=== PATIENT | female | born 1990 | race Caucasian/White ===

== ENCOUNTER 2017-03-02 05:46 | Emergency (ER) | payer BC, MEDICAID ==
--- NOTE | 2017-03-02 05:56 | EDPHY ---
H & P Stated Complaint: sore throat, painful swallowing, Source: Patient - Personal History LMP (Females 10-55): 1-7 Days Ago Current Tetanus/Diphtheria Vaccine: Unsure Current Tetanus Diphtheria and Acellular Pertussis (TDAP): Unsure Tetanus Vaccine Date: <10 years - Medical/Surgical History Hx Asthma: No Hx Chronic Respiratory Disease: No Hx Diabetes: No Hx Cardiac Disease: No Hx Renal Disease: No Hx Cirrhosis: No Hx Alcoholism: No Hx HIV/AIDS: No Hx Splenectomy or Spleen Trauma: No Other PMH: sinus infection 06/2015 - Social History Smoking Status: Never smoked HPI/ROS: HPI CHIEF COMPLAINT: Sore throat, painful swelling x2 weeks progressively getting worse HISTORY OF PRESENT ILLNESS: This patient very pleasant 26-year-old female no significant medical history does not take any daily medications she has recently been suffering from sore throat for the past 2 weeks. She was seen at [facility] twice. She states that she has had a negative strep test negative mono negative flu. She has been treated with Bicillin antibiotic shot twice. She states initially on February 20 she was seen for sore throat and given a Bicillin shot she did not have strep test at that time. She was just treated. She states that her symptoms got worse over the weekend she returned on Friday or February 23 had a strep test mono and influenza that time that were negative but had another Bicillin shot. She now presents emergency room if she has had progressively worsening sore throat trouble swallowing. She denies drooling denies change in phonation. Denies trouble breathing. Her last fever was over week ago. Her main complaint this evening is severe sore throat painful when she swallows. 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 Past Medical History: No significant medical history Past Surgical History: No significant surgical history Social History: Denies daily use of drugs alcohol tobacco products Family History: Noncontributory ROS REVIEW OF SYSTEMS: A comprehensive 10 point review of systems is otherwise negative aside from elements mentioned in the history of present illness. Exam Constitutional appears well nontoxic, triage nursing summary reviewed, vital signs reviewed, awake/alert. Eyes normal conjunctivae and sclera, EOMI, PERRLA. HENT neck exam: trachea is midline, there is submandibular lymphadenopathy bilaterally, oropharynx exam posterior pharynx uvula is midline, no significant tonsillar bed swelling is erythematous with some very fine white lesions that look vesicular, soft palate is normal, no signs of swelling underneath the tongue no signs of Fermín's, dentition intact, no stridor, normal inspection, atraumatic, moist mucus membranes, no epistaxis, neck supple/ no meningismus, no raccoon eyes. Respiratory clear to auscultation bilaterally, normal breath sounds, no respiratory distress, no wheezing. Cardiovascular rate normal, regular rhythm, no murmur, no edema, distal pulses normal. Gastrointestinal soft, non-tender, no rebound, no guarding, normal bowel sounds, no distension, no pulsatile mass. Genitourinary no CVA tenderness. Musculoskeletal no midline vertebral tenderness, full range of motion, no calf swelling, no tenderness of extremities, no meningismus, good pulses, neurovascularly intact. Skin pink, warm, & dry, no rash, skin atraumatic. Neurologic awake, alert and oriented x 3, AAOx3, moves all 4 extremities equally, motor intact, sensory intact, CN II-XII intact, normal cerebellar, normal vision, normal speech. Psychiatric normal mood/affect. Heme/Lymph/Immune no lymphadenopathy. Differential Diagnosis: Includes but is not limited to in a particular order viral pharyngitis, strep pharyngitis, mono, deep space neck abscess, retropharyngeal abscess, [employer] Medical Decision Making: given this patient's symptoms have been going on for 2 weeks progressively getting worse despite multiple treatments of antibiotics I will test for monitor again and strep also given the amount of exquisite pain that she has when she swallows I will perform a CT scan with IV contrast soft tissue neck to me shows not a deep space abscess. Check basic blood work. Meanwhile patient be given Toradol anti-inflammatory pain control as well as Decadron for inflammation. Re-evaluation: 0611: This time this patient is maintaining her airway appropriately there is no significant signs of oropharyngeal swelling. She appears well nontoxic. Plan for blood work CT and medications. (Bakari Connelly) Constitutional: Initial Vital Signs Temperature (C) 37.3 C 03/02/17 05:47 Heart Rate 110 H 03/02/17 05:47 Respiratory Rate 18 03/02/17 05:47 Blood Pressure 151/105 H 03/02/17 05:47 O2 Sat (%) 96 03/02/17 05:47 O2 Delivery Mode Room Air Allergies/Adverse Reactions: No Known Allergies Allergy (Unverified 06/22/15 22:25) Home Medications: Medication Instructions Recorded Amoxicillin/Clavulanate Pot 875 mg PO BID #14 tab 03/02/17 [Augmentin 875 MG TAB (*)] Dexamethasone [Decadron 4 MG (*)] 8 mg PO DAILY #3 tab 03/02/17 Medical Decision Making - Diagnostics Imaging: CT neck with IV contrast reviewed by me and discussed with Dr. Phan shows lymphadenopathy but no abscess or airway compromise (Italo Delaney) ED Course/Re-evaluation: Re-evaluation by me at 8:00 a.m.. Patient and I discussed laboratory and imaging study results. We discussed treatment plan including criteria for return importance of follow-up and further evaluation. She expresses understanding and agreement Patient is stable on re-evaluation. She is talking and speaking in full sentences. There is no stridor. She is handling her secretions well. (Italo Delaney) Differential Diagnosis: I considered retropharyngeal abscess, peritonsillar abscess. It appears with significant lymphadenopathy but no abscess and a positive mono that this is mononucleosis (Italo Delaney) - Data Points Laboratory Results: Laboratory Results 03/02/17 06:15 03/02/17 06:15 03/02/17 03/02/17 03/02/17 Unknown 06:15 06:15 WBC RBC Hgb Hct MCV MCH MCHC RDW Plt Count MPV Neut % (Auto) Lymph % (Auto) Rush % (Auto) Eos % (Auto) Baso % (Auto) Nucleat RBC Rel Count Absolute Neuts (auto) Absolute Lymphs (auto) Absolute Monos (auto) Absolute Eos (auto) Absolute Basos (auto) Absolute Nucleated RBC Immature Gran % Seg Neutrophils % Band Neutrophils % Lymphocytes % Monocytes % Eosinophils % Basophils % Immature Gran # Absolute Seg Neuts Absolute Band Neuts Absolute Lymphocytes Absolute Monocytes Absolute Eosinophils Absolute Basophils RBC/WBC/PLT Morphology Atypical Lymphocytes Platelet Estimate Smear Review By Sodium 142 mEq/L mEq/L (134-144) Potassium 4.2 mEq/L mEq/L (3.5-5.2) Chloride 108 mEq/L mEq/L (97-110) Carbon Dioxide 26 mEq/l mEq/l (22-31) Anion Gap 8 mEq/L mEq/L (8-16) BUN 9 mg/dL mg/dL (7-23) Creatinine 0.8 mg/dL mg/dL (0.6-1.0) Estimated GFR > 60 Glucose 93 mg/dL mg/dL (70-100) Calcium 9.3 mg/dL mg/dL (8.5-10.4) Monoscreen POSITIVE H (NEGATIVE) Group A Strep Screen Group A Strep DNA Pending 03/02/17 03/02/17 06:15 06:05 WBC 10.93 10^3/uL H 10^3/uL (3.80-9.50) RBC 4.57 10^6/uL 10^6/uL (4.18-5.33) Hgb 14.1 g/dL g/dL (12.6-16.3) Hct 42.0 % % (38.0-47.0) MCV 91.9 fL fL (81.5-99.8) MCH 30.9 pg pg (27.9-34.1) MCHC 33.6 g/dL g/dL (32.4-36.7) RDW 13.1 % % (11.5-15.2) Plt Count 187 10^3/uL 10^3/uL (150-400) MPV 9.5 fL fL (8.7-11.7) Neut % (Auto) 24.9 % L % (39.3-74.2) Lymph % (Auto) 67.5 % H % (15.0-45.0) Rush % (Auto) 5.9 % % (4.5-13.0) Eos % (Auto) 0.2 % L % (0.6-7.6) Baso % (Auto) 1.0 % % (0.3-1.7) Nucleat RBC Rel Count 0.0 % % (0.0-0.2) Absolute Neuts (auto) 2.72 10^3/uL 10^3/uL (1.70-6.50) Absolute Lymphs (auto) 7.38 10^3/uL H 10^3/uL (1.00-3.00) Absolute Monos (auto) 0.64 10^3/uL 10^3/uL (0.30-0.80) Absolute Eos (auto) 0.02 10^3/uL L 10^3/uL (0.03-0.40) Absolute Basos (auto) 0.11 10^3/uL H 10^3/uL (0.02-0.10) Absolute Nucleated RBC 0.00 10^3/uL 10^3/uL (0-0.01) Immature Gran % 0.5 % % (0.0-1.1) Seg Neutrophils % 22 % % Band Neutrophils % 4 % % Lymphocytes % 67 % % Monocytes % 4 % % Eosinophils % 1 % % Basophils % 2 % % Immature Gran # 0.06 10^3/uL 10^3/uL (0.00-0.10) Absolute Seg Neuts 2.40 10^/uL 10^/uL (1.70-6.50) Absolute Band Neuts 0.44 10^3/uL 10^3/uL (0.00-0.70) Absolute Lymphocytes 7.32 10^3/uL H 10^3/uL (1.00-3.00) Absolute Monocytes 0.44 10^3/uL 10^3/uL (0.30-0.80) Absolute Eosinophils 0.11 10^3/uL 10^3/uL (0.03-0.40) Absolute Basophils 0.22 10^3/uL H 10^3/uL (0.02-0.10) RBC/WBC/PLT Morphology NORMAL (NORMAL) Atypical Lymphocytes 2+ H Platelet Estimate ADEQUATE (ADEQ) Smear Review By Pending Sodium Potassium Chloride Carbon Dioxide Anion Gap BUN Creatinine Estimated GFR Glucose Calcium Monoscreen Group A Strep Screen NEGATIVE (NEGATIVE) Group A Strep DNA Medications Given: Discontinued Medications Dexamethasone (Decadron Injection) 10 mg IVP EDNOW ONE Stop: 03/02/17 06:07 Last Admin: 03/02/17 06:20 Dose: 10 mg Dexamethasone (Decadron) 8 mg PO EDNOW ONE Stop: 03/02/17 07:58 Last Admin: 03/02/17 08:10 Dose: 8 mg Sodium Chloride (Ns) 1,000 mls @ 0 mls/hr IV ONCE ONE PRN Reason: Wide Open Stop: 03/02/17 06:07 Last Admin: 03/02/17 06:20 Dose: 1,000 mls Ketorolac Tromethamine (Toradol) 30 mg IVP ONCE ONE Stop: 03/02/17 06:07 Last Admin: 03/02/17 06:20 Dose: 30 mg Departure - Departure Disposition: Home, Routine, Self-Care Clinical Impression: Mononucleosis Pharyngitis Qualifiers: Pharyngitis/tonsillitis etiology: unspecified etiology Qualified Code(s): J02.9 - Acute pharyngitis, unspecified Condition: Good Instructions: Mononucleosis (ED) Additional Instructions: Drink plenty of fluids stay hydrated. Consider smoothies and milk shakes for nutrition and hydration with sore throat. Diet as tolerated. No activity that may result in abdominal trauma for 2 weeks. Return for worsening symptoms. Referrals: Patient,NotPresent [Unknown] - As per Instructions [facility] [Outside] - 3-4 days, if not improved Prescriptions: Amoxicillin/Clavulanate Pot [Augmentin 875 MG TAB (*)] 875 mg PO BID #14 tab Dexamethasone [Decadron 4 MG (*)] 8 mg PO DAILY #3 tab
[2017-03-02] MEDS ORDERED: NS 1,000 ML IV ONE (06:06)
[2017-03-02] MEDS ORDERED: DEXAMETHASONE 10 MG/ML VIAL IVP ONE (06:06)
[2017-03-02] MEDS ORDERED: KETOROLAC 30 MG/1 ML SDV IVP ONE (06:06)
[2017-03-02 06:36] LABS: % IMMATURE GRANULYOCYTES 0.5 % (0.0-1.1); ABSOLUTE IMMATURE GRANULOCYTES 0.06 10^3/uL (0.00-0.10); ADD DIFF? NO; ADD MORPH? NO; ADD SCAN? YES; FRAGMENT RBC FLAG 0 (0-99); HEMOGLOBIN 14.1 g/dL (12.6-16.3); LEFT SHIFT FLG 0 (0-99); LIPEMIA HEMOLYSIS FLAG 80 (0-99); MEAN CELL HEMOGLOBIN 30.9 pg (27.9-34.1); MEAN CELL HEMOGLOBIN CONCENTR. 33.6 g/dL (32.4-36.7); MEAN CELL VOLUME 91.9 fL (81.5-99.8); MEAN PLATELET VOLUME 9.5 fL (8.7-11.7); PLATELET CLUMPS FLAG 20 (0-99); PLATELET COUNT 187 10^3/uL (150-400); RED BLOOD CELL COUNT 4.57 10^6/uL (4.18-5.33); RED CELL DISTRIBUTION WIDTH 13.1 % (11.5-15.2)
[2017-03-02 06:37] LABS: ATYPICAL LYMPHOCYTE FLAG 300 (0-99)
[2017-03-02 06:55] LABS: ANION GAP 8 mEq/L (8-16); CALCIUM 9.3 mg/dL (8.5-10.4); CARBON DIOXIDE 26 mEq/l (22-31); CHLORIDE 108 mEq/L (97-110); CREATININE 0.8 mg/dL (0.6-1.0); GLOMERULAR FILTRATION RATE > 60; GLUCOSE 93 mg/dL (70-100); POTASSIUM 4.2 mEq/L (3.5-5.2); SODIUM 142 mEq/L (134-144)
[2017-03-02 06:58] LABS: SCAN POSITIVE
[2017-03-02 07:00] LABS: PLATELET ESTIMATE ADEQUATE (ADEQ)
[2017-03-02] MEDS ORDERED: IOPAMIDOL (ISOVUE-300) 100 ML BTL IV ONE (07:21)
[2017-03-02] MEDS ORDERED: DEXAMETHASONE 4 MG TAB PO ONE (07:57)
[2017-03-02 09:01] VITALS: BP 136/83; PULSE 93; RESP 16; TEMP 98.1; O2SAT 94
== END 2017-03-02 09:02 | disposition home or self-care (01) ==
DX: B27.90 Infectious mononucleosis, unspecified without complication (principal)
CPT/HCPCS: 96374; J1885; Q9967